=== PATIENT | male | born 1990 | race Caucasian/White ===

== ENCOUNTER 2016-12-31 21:52 | Emergency (ER) | payer OTHER, SELFPAY ==
[2016-12-31 22:09] VITALS: O2SAT 98
--- NOTE | 2016-12-31 22:35 | ERPHSYRPT ---
- History of Present Illness Time Seen by Provider: 12/31/16 22:30 Source: patient, family Exam Limitations: no limitations Patient Subjective Stated Complaint: PT COMPLAINS OF PRODUCTIVE COUGH, EAR PAIN , AND HOARSENESS FOR APPROXIMATELY ONE WEEK. PT ALSO COMPLAINS OF ROBIN, NAUSEA AND DIZZINESS. PT REPORTS HISTORY OF SINUS PROBLEMS. Triage Nursing Assessment: PT IS AOX3, AMBULATORY TO COT WITH NO DIFFICULTIES, SKIN IS PWD, RESPS ARE EASY AND NONLABORED. PT IS AFEBRILE. LUNG SOUNDS ARE CLEAR THROUGHOUT ALL FRANCIS. Physician History: The patient is a 26-year-old male with his complaining of a cough for 2 weeks. He also has hoarseness and a frontal headache and nausea at times. For the past 2 days his right ear has hurt. He has a past medical history of sinus infections. He denies fever. Timing/Duration: week(s) (2) Cough Quality/Degree: productive cough Possible Cause: occasional episodes Modifying Factors: Improves With: coughing Associated Symptoms: cough, earache, sore throat Allergies/Adverse Reactions: No Known Drug Allergies Allergy (Unverified 01/21/14 16:02) Home Medications: No Home Meds 1 ea UD 01/21/14 [History] Hx Tetanus, Diphtheria Vaccination/Date Given: Yes Hx Influenza Vaccination/Date Given: No Hx Pneumococcal Vaccination/Date Given: No Immunizations Up to Date: Yes - Review of Systems Constitutional: No Fever, No Chills Eyes: No Symptoms Ears, Nose, & Throat: Ear Pain, Hoarse Respiratory: Cough Cardiac: No Chest Pain, No Edema, No Syncope Abdominal/Gastrointestinal: Nausea Genitourinary Symptoms: No Dysuria Musculoskeletal: No Back Pain, No Neck Pain Skin: No Rash Neurological: No Dizziness, No Focal Weakness, No Sensory Changes Psychological: No Symptoms Endocrine: No Symptoms Hematologic/Lymphatic: No Symptoms Immunological/Allergic: No Symptoms All Other Systems: Reviewed and Negative - Past Medical History Pertinent Past Medical History: Yes Neurological History: No Pertinent History ENT History: No Pertinent History Respiratory History: No Pertinent History Endocrine Medical History: No Pertinent History, Hypoglycemia Musculoskeletal History: Other History: No Pertinent History Psycho-Social History: No Pertinent History Male Reproductive Disorders: No Pertinent History 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, SINUS - Past Surgical History Past Surgical History: Yes Gastrointestinal: Other Other Surgical History: PYLORIC STENOSIS SURG AN INFANT - Social History Smoking Status: Never smoker How long have you smoked: 13 Exposure to second hand smoke: Yes Drug Use: none Patient Lives Alone: No - Nursing Vital Signs Nursing Vital Signs: Initial Vital Signs Temperature 99.4 F Temperature Source Oral Pulse Rate 100 Respiratory Rate 20 Blood Pressure [Left Arm] 142/92 Pain Intensity 3 - Physical Exam General Appearance: no apparent distress Eye Exam: PERRL/EOMI, eyes nml inspection Ears, Nose, Throat Exam: TM abnormal (L) Neck Exam: normal inspection, non-tender, supple, full range of motion Respiratory Exam: normal breath sounds, lungs clear, No respiratory distress Cardiovascular Exam: regular rate/rhythm, normal heart sounds Gastrointestinal/Abdomen Exam: soft, No tenderness Rectal Exam: not done Back Exam: normal inspection, No CVA tenderness, No vertebral tenderness Extremity Exam: normal inspection, normal range of motion Neurologic Exam: alert, oriented x 3, cooperative, normal mood/affect, sensation nml, No motor deficits Skin Exam: normal color, warm, dry, No rash Lymphatic Exam: No adenopathy SpO2 Interpretation: normal SpO2: 98 Oxygen Delivery: Room Air - Progress Progress: unchanged Air Movement: fair Blood Culture(s) Obtained: No Antibiotics given: No Counseled pt/family regarding: diagnosis - Departure Time of Disposition: 22:34 Departure Disposition: Home Clinical Impression: Otitis media, Bronchitis, Sinusitis Condition: Stable Critical Care Time: No Prescriptions: Ondansetron [Zofran Odt] 4 mg PO Q6HPRN PRN #10 tab.rapdis PRN Reason: Nausea/Vomiting Amoxicillin/Potassium Clav [Augmentin 875-125 Tablet] 875 mg PO BID #20 tablet
[2016-12-31] MEDS ORDERED: Augmentin 875-125 Tablet PO ONE (22:37)
[2016-12-31] MEDS ORDERED: Augmentin 875-125 Tablet ONE (22:39)
[2016-12-31 22:59] VITALS: BP 132/88; PULSE 89
== END 2016-12-31 22:58 | disposition home or self-care (01) ==
LOC: ED 21:52
DX: H66.90 Otitis media, unspecified, unspecified ear (principal); J40 Bronchitis, not specified as acute or chronic; J32.9 Chronic sinusitis, unspecified; R05 Cough
CPT/HCPCS: 99283; A9270-GY

== ENCOUNTER 2017-08-20 17:23 | Emergency (ER) | payer OTHER ==
[2017-08-20 17:36] VITALS: BP 147/86; PULSE 73; O2SAT 96
[2017-08-20] MEDS ORDERED: TORAdol 30 mg Injection IV ONE (17:52)
[2017-08-20] MEDS ORDERED: DECADRON 10MG INJ. IV ONE (17:52)
--- NOTE | 2017-08-20 17:52 | ERPHSYRPT ---
- History of Present Illness Time Seen by Provider: 08/20/17 17:44 Source: patient Exam Limitations: no limitations Patient Subjective Stated Complaint: pt states he has chronic back problems. states pain became worse 3 days ago. seen chiropractor 2 days ago. pt denies any recent injury to back. pt c/o pain to lower back. Triage Nursing Assessment: ptpink, warm, dry. pt ambulated into ER without difficulty. no deformity noted. pt urinating wnl. Physician History: The patient is a 26-year-old male with his come complaining of increasing low back pain for 2-3 days. He states he has chronic back pain and this is a flareup. He took one of his 's [place] was about one week ago without relief. He requests Toradol and a steroid by IV. He was at his chiropractor 2 days ago with minimal relief. He did not hurt his back by lifting. He has no trouble with urination or defecation. He denies any numbness or tingling. His past medical history is significant for chronic back pain. Timing/Duration: day(s) (3) Method of Injury: unknown Quality: sharp, aching Back Pain Location: lumbar spine, paraspinous muscles Severity of Pain-Max: severe Severity of Pain-Current: severe Modifying Factors: Improves With: pain medication Associated Symptoms: denies symptoms, No urinary incontinence, No loss of bowel control, No problems urinating, No weakness, No sensory/motor loss, No tingling in legs/feet Previous symptoms: same symptoms as today Allergies/Adverse Reactions: No Known Drug Allergies Allergy (Unverified 08/20/17 17:36) Home Medications: Cetirizine HCl [Zyrtec] 10 mg PO DAILY 08/20/17 [History] Hx Tetanus, Diphtheria Vaccination/Date Given: Yes (up to date) Hx Influenza Vaccination/Date Given: No Hx Pneumococcal Vaccination/Date Given: No Immunizations Up to Date: Yes - Review of Systems Constitutional: No Fever, No Chills Eyes: No Symptoms Ears, Nose, & Throat: No Symptoms Respiratory: No Cough, No Dyspnea Cardiac: No Chest Pain, No Edema, No Syncope Abdominal/Gastrointestinal: No Abdominal Pain, No Nausea, No Vomiting, No Diarrhea Genitourinary Symptoms: No Dysuria Musculoskeletal: Back Pain Skin: No Rash Neurological: No Dizziness, No Focal Weakness, No Sensory Changes Psychological: No Symptoms Endocrine: No Symptoms Hematologic/Lymphatic: No Symptoms Immunological/Allergic: No Symptoms All Other Systems: Reviewed and Negative - Past Medical History Pertinent Past Medical History: Yes Neurological History: No Pertinent History ENT History: No Pertinent History Cardiac History: Hypertension Respiratory History: No Pertinent History Endocrine Medical History: Hypoglycemia Musculoskeletal History: No Pertinent History History: No Pertinent History Psycho-Social History: No Pertinent History Male Reproductive Disorders: No Pertinent History Other Medical History: chronic back pain - Past Surgical History Past Surgical History: Yes Gastrointestinal: Other Other Surgical History: pyloric stenosis - Social History Smoking Status: Never smoker How long have you smoked: 13 Exposure to second hand smoke: No Drug Use: none Patient Lives Alone: No - Nursing Vital Signs Nursing Vital Signs: Initial Vital Signs Temperature 97.8 F 08/20/17 17:32 Pulse Rate 73 08/20/17 17:32 Respiratory Rate 18 08/20/17 17:32 Blood Pressure 147/86 08/20/17 17:32 O2 Sat by Pulse Oximetry 96 08/20/17 17:32 Pain Scale Pain Intensity [Lower Back] 6 Pain Intensity 6 - Physical Exam General Appearance: mild distress Eye Exam: PERRL/EOMI, eyes nml inspection Ears, Nose, Throat Exam: normal ENT inspection Neck Exam: normal inspection, non-tender, supple, full range of motion, No meningismus, No midline tenderness Respiratory Exam: normal breath sounds, lungs clear, No respiratory distress Cardiovascular Exam: regular rate/rhythm, normal heart sounds Gastrointestinal Exam: soft, No tenderness, No mass Rectal Exam: not done Back Exam: decreased range of motion, muscle spasm (left lumbar paraspinous ), No vertebral tenderness Extremity Exam: normal inspection, normal range of motion, No calf tenderness, No pedal edema Neurologic Exam: alert, oriented x 3, cooperative, ict programmer II-XII nml as tested, normal mood/affect, nml station & gait, sensation nml, No motor deficits Skin Exam: normal color, warm, dry, No rash SpO2 Interpretation: normal SpO2: 96 Oxygen Delivery: Room Air - Departure Time of Disposition: 17:58 Departure Disposition: Home Clinical Impression: Low back pain Condition: Stable Critical Care Time: No Referrals: NING ARAUJO [Primary Care Provider] - Additional Instructions: You have low back pain with back spasms. You were given Toradol 30 mg and Decadron 10 mg by IV injection in the ER. Take naproxen 500 mg twice a day as needed and Flexeril 5 mg every 8 hours as needed. Apply ice to the low back as needed. Follow-up in one to 2 days. Prescriptions: Cyclobenzaprine HCl [Flexeril] 5 mg PO Q8H PRN PRN #10 tablet PRN Reason: Pain Naproxen 500 mg PO BID PRN #30 tablet.
[2017-08-20] MEDS ORDERED: TORAdol 30 mg Injection ONE (17:57)
[2017-08-20] MEDS ORDERED: DECADRON 10MG INJ. ONE (17:57)
== END 2017-08-20 18:39 | disposition home or self-care (01) ==
LOC: ED 17:23
DX: M54.5 Low back pain (principal); R25.2 Cramp and spasm; M62.830 Muscle spasm of back
CPT/HCPCS: 96374; 96375; 99283; J1100; J1885

== ENCOUNTER 2017-12-17 10:20 | Emergency (ER) | payer OTHER ==
[2017-12-17] MEDS ORDERED: MOTRIN 600 MG PO ONE (10:32)
[2017-12-17] MEDS ORDERED: MOTRIN 600 MG ONE (10:40)
[2017-12-17 11:17] VITALS: BP 135/81; PULSE 72; O2SAT 94
--- NOTE | 2017-12-17 11:19 | XRAY ---
Indication: Pain following lifting injury. Comparison: None 3 views of the right shoulder demonstrates minimal AC degenerative arthropathy. No other bony, articular, or soft tissue abnormalities.
--- NOTE | 2017-12-17 11:37 | ERPHSYRPT ---
- History of Present Illness Time Seen by Provider: 12/17/17 10:32 Source: patient Exam Limitations: no limitations Patient Subjective Stated Complaint: right shoulder pain Triage Nursing Assessment: pt to er c/o right shoulder pain, reinjury, lifting batteries to a shelf when he felt it pop and "tear", pt has limited ROM, pain increases wtih movement Physician History: patient lifting at work today; felt pain and tear in right shoulder after lifting a battery; no other injuries or complaints; right handed; prior strains Occurred: just prior to arrival Method of Injury: other (lifting a bawttery) Quality: aching Severity of Pain-Max: severe Severity of Pain-Current: mild Extremities Pain Location: shoulder: right Modifying Factors: Improves With: immobilization (helps), movement (aggravates) Associated Symptoms: none Allergies/Adverse Reactions: No Known Drug Allergies Allergy (Unverified 08/20/17 17:36) Home Medications: Cetirizine HCl [Zyrtec] 10 mg PO DAILY 08/20/17 [History] Hx Tetanus, Diphtheria Vaccination/Date Given: No Hx Influenza Vaccination/Date Given: No Hx Pneumococcal Vaccination/Date Given: No Immunizations Up to Date: No - Review of Systems Constitutional: No Symptoms Eyes: No Symptoms Ears, Nose, & Throat: No Symptoms Respiratory: No Cough, No Cyanosis, No Dyspnea, No Wheezing Cardiac: No Chest Pain, No Edema, No Syncope Abdominal/Gastrointestinal: No Abdominal Pain, No Nausea, No Vomiting, No Diarrhea Genitourinary Symptoms: No Symptoms Musculoskeletal: Injury (right sholdeer), Joint Pain (right shoulder) Skin: No Symptoms Neurological: No Symptoms Psychological: No Symptoms - Past Medical History Pertinent Past Medical History: No Neurological History: No Pertinent History ENT History: No Pertinent History Cardiac History: Hypertension Respiratory History: No Pertinent History Endocrine Medical History: Hypoglycemia Musculoskeletal History: No Pertinent History History: No Pertinent History Psycho-Social History: No Pertinent History Male Reproductive Disorders: No Pertinent History Other Medical History: chronic back pain - Past Surgical History Past Surgical History: No Gastrointestinal: Other Other Surgical History: pyloric stenosis - Social History Smoking Status: Never smoker How long have you smoked: 13 Exposure to second hand smoke: No Alcohol Use: Socially Drug Use: none Patient Lives Alone: No Significant Family History: no pertinent family hx - Nursing Vital Signs Nursing Vital Signs: Initial Vital Signs Temperature 98.0 F 12/17/17 10:31 Pulse Rate 82 12/17/17 10:31 Respiratory Rate 20 12/17/17 10:31 Blood Pressure 145/91 12/17/17 10:31 O2 Sat by Pulse Oximetry 98 12/17/17 10:31 Pain Scale Pain Intensity 6 - Physical Exam General Appearance: mild distress (pain right shulder), alert, obese Eyes, Ears, Nose, Throat Exam: normal ENT inspection, TMs normal, pharynx normal Neck Exam: normal inspection, non-tender, supple, full range of motion, No JVD Cardiovascular/Respiratory Exam: chest non-tender, normal breath sounds, regular rate/rhythm, heart sounds normal, no ecchymosis, no JVD, no M/R/G, no respiratory distress Abdominal Exam: non-tender, soft, no organomegaly Back Exam: normal inspection, normal range of motion, No CVA tenderness, No vertebral tenderness Shoulder Exam: normal inspection, limited ROM, pain, soft tissue tenderness, No non-tender, No normal ROM Elbow/Forearm Exam: normal inspection, non-tender, no evidence of injury, normal ROM Wrist Exam: normal inspection, non-tender, no evidence of injury, normal ROM Hand Exam: normal inspection, non-tender, no evidence of injury, normal ROM Neuro/Tendon Exam: normal sensation, normal motor functions, normal tendon functions, responds to pain Mental Status Exam: alert, oriented x 3, cooperative Skin Exam: normal color, warm, dry SpO2 Interpretation: normal SpO2: 94 Oxygen Delivery: Room Air Procedures - Splinting Location of Splint: Right, Upper Arm Type of Splint: Other (sling) Splint Applied By: Other Pre-Proc Neuro Vasc Exam: normal Post-Proc Neuro Vasc Exam: neurovascular intact - Course Nursing assessment & vital signs reviewed: Yes Ordered Tests: Active Orders 24 hr Category Date Time Status Cold Application STAT Care 12/17/17 10:32 Active Re-Check Vital Signs STAT Care 12/17/17 10:32 Active Sling Application STAT Care 12/17/17 10:32 Active SHOULDER Stat Exams 12/17/17 11:00 Completed Medication Summary Discontinued Medications Generic Name Dose Route Start Last Admin Trade Name Freq PRN Reason Stop Dose Admin Ibuprofen 600 mg 12/17/17 10:32 12/17/17 10:41 Motrin 600 Mg PO 12/17/17 10:33 600 mg STAT ONE Administration Ibuprofen Confirm 12/17/17 10:40 Motrin 600 Mg Administered 12/17/17 10:41 Dose 600 mg .ROUTE .STK-MED ONE - Progress Progress: improved, re-examined Progress Note: 12/17/17 11:36 xr neg; sling applied; no NV compromise after; resutls and instrcutions given; meds helped Counseled pt/family regarding: diagnosis, need for follow-up, rad results - Departure Time of Disposition: 11:37 Departure Disposition: Home Clinical Impression: Right shoulder strain Condition: Stable Critical Care Time: No Referrals: NING ARAUJO [Primary Care Provider] - Instructions: Shoulder Sprain (DC) Additional Instructions: Acute Sprain Instructions upper extremity; R.I.C.E.; wear splint/sling as directed; observe for neuro-vascular compromise ( change in color; increased pain; cold to touch); FU LMD/ specialist as directed; call for appointment as directed; Return if problems; Motrin OTC Take meds as prescribed. Follow-up with family doctor as directed. Call for appointment. Return if any problems. If you smoke please stop. Call or follow up with your family doctor for assistance if you need it to stop. Please wear your seatbelt when driving. Have a nice day. Thank you for allowing us to participate in your care today. :o) Dr Caden Barajas
== END 2017-12-17 11:43 | disposition home or self-care (01) ==
LOC: ED 10:20
DX: S46.911A Strain of unspecified muscle, fascia and tendon at shoulder and upper arm level, right arm, initial encounter (principal); X50.0XXA Overexertion from strenuous movement or load, initial encounter; Y93.89 Activity, other specified; Y92.29 Other specified public building as the place of occurrence of the external cause; Y99.0 Civilian activity done for income or pay; I10 Essential (primary) hypertension
CPT/HCPCS: 73030; 99283; A9270-GY

== ENCOUNTER 2018-12-21 02:12 | Emergency (ER) | payer OTHER ==
[2018-12-21] MEDS ORDERED: TORAdol 30 mg Injection IM ONE (03:10)
--- NOTE | 2018-12-21 03:15 | ERPHSYRPT ---
- History of Present Illness Source: patient Exam Limitations: no limitations Patient Subjective Stated Complaint: pt states he has been having lt foot pain since approx 1300 and has been increasing thru the day. sttes pain is on the outside of his foot and radiating up to calf. states pain is worse when sitting down after walking Triage Nursing Assessment: pt alert and oriented, answers questions approp. pt in per wheelchair, transfers to stretcher per self with limping gait noted. cap refill to lt lower ext and pedal pulse wnl. Physician History: Pt is a 27 y/o male that presented to the ER with severe left foot pain. Pt states, has pain in the lateral part of the foot and the arch. It is worse, when he is begining to ambulate after rest. Pain is severe on palpation. No injury caused the pain. Occurred: days ago Quality: sharpness, stabbing, other (after rest and begining ambulation) Severity of Pain-Max: severe Severity of Pain-Current: severe Lower Extremities Pain: foot: left (plantar pain with ambulation) Modifying Factors: Improves With: cold therapy, pain medication Associated Symptoms: none Allergies/Adverse Reactions: No Known Drug Allergies Allergy (Verified 01/20/18 12:25) Home Medications: Cetirizine HCl [Zyrtec] 10 mg PO DAILY 08/20/17 [History] Hx Tetanus, Diphtheria Vaccination/Date Given: Yes Hx Influenza Vaccination/Date Given: No Hx Pneumococcal Vaccination/Date Given: No Immunizations Up to Date: Yes - Review of Systems Constitutional: No Fever, No Chills Respiratory: No Cough, No Dyspnea Cardiac: No Chest Pain, No Edema, No Syncope Abdominal/Gastrointestinal: No Abdominal Pain, No Nausea, No Vomiting, No Diarrhea Genitourinary Symptoms: No Dysuria Musculoskeletal: Other (Pain in the plantar aspect of the L foot.) Neurological: No Dizziness, No Focal Weakness, No Sensory Changes - Past Medical History Pertinent Past Medical History: No Neurological History: No Pertinent History ENT History: No Pertinent History Cardiac History: Hypertension Respiratory History: No Pertinent History Endocrine Medical History: Hypoglycemia Musculoskeletal History: No Pertinent History GI Medical History: GERD History: No Pertinent History Psycho-Social History: No Pertinent History Male Reproductive Disorders: No Pertinent History Other Medical History: chronic back pain, pt states he does not have high blood pressure all the time. - Past Surgical History Past Surgical History: Yes Neuro Surgical History: No Pertinent History Cardiac: No Pertinent History Respiratory: No Pertinent History Gastrointestinal: Other Genitourinary: No Pertinent History Musculoskeletal: No Pertinent History Male Surgical History: No Pertinent History Other Surgical History: pyloric stenosis - Social History Smoking Status: Former smoker How long have you smoked: 13 Exposure to second hand smoke: No Alcohol Use: Socially Drug Use: none Patient Lives Alone: No Significant Family History: no pertinent family hx - Nursing Vital Signs Nursing Vital Signs: Initial Vital Signs Temperature 97.3 F 12/21/18 02:22 Pulse Rate 98 H 12/21/18 02:22 Respiratory Rate 20 12/21/18 02:22 Blood Pressure 151/106 12/21/18 02:22 O2 Sat by Pulse Oximetry 98 12/21/18 02:22 Pain Scale Pain Intensity [Left Foot] 10 Pain Intensity 10 - Physical Exam General Appearance: alert Cardiovascular/Respiratory Exam: chest non-tender, normal breath sounds, regular rate/rhythm, no respiratory distress Gastrointestinal/Abdominal Exam: non-tender, guarding Legs Exam: left leg: non-tender (No calf tenderness ) Foot Exam: left foot: pain (in the plantar aspect of the L foot), soft tissue tenderness Neuro/Tendon Exam: normal sensation, normal motor functions Skin Exam: normal color, warm, dry SpO2: 98 - Course Nursing assessment & vital signs reviewed: Yes - Radiology Exams Left Foot X-ray Interpretation: Interpreted by me (No fracture seen) Ordered Tests: Active Orders 24 hr Category Date Time Status FOOT (MINIMUM 3 VIEWS) Stat Exams 12/21/18 02:57 Taken - Progress Progress: improved Progress Note: 12/21/18 03:17 Pt had XR that showed no fracture. On palpation there is tenderness to palpation of the arch and lateral aspect of the foot. I explained to the pt that he has plantar fasciitis and needs to stretch his foot preior to ambulation and in the AM and post rest. Toradol IM was given for pain. Pt should f/u with podiatry. 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 Stretch foot prior to ambulation. F/u with Podiatry if no improvement.
[2018-12-21] MEDS ORDERED: TORAdol 30 mg Injection ONE (03:17)
[2018-12-21 03:55] VITALS: BP 136/83; PULSE 83; O2SAT 97
--- NOTE | 2018-12-21 09:17 | XRAY ---
Indication: Pain. No known injury. Comparison: None 3 nonweightbearing views of the left foot demonstrates tiny posterior heel spur. No other bony, articular, or soft tissue abnormalities.
== END 2018-12-21 03:50 | disposition home or self-care (01) ==
LOC: ED 02:12
DX: M72.2 Plantar fascial fibromatosis (principal); M79.672 Pain in left foot
CPT/HCPCS: 73630; 96372; 99284; J1885

== ENCOUNTER 2020-04-12 00:55 | Emergency (ER) | payer OTHER ==
[2020-04-12] MEDS ORDERED: BABY ASPIRIN 81 MG CHEW PO ONE (01:24)
--- NOTE | 2020-04-12 01:30 | ERPHSYRPT ---
- History of Present Illness Time Seen by Provider: 04/12/20 01:16 Source: patient Exam Limitations: no limitations Patient Subjective Stated Complaint: pt states he has beenhaving occasional dizzy spells and feels like his heart is racng. states tonight he had a dizzy spell and felt like his heart was racing and has cont to feel bad after. states he feels drained after. Triage Nursing Assessment: pt alert and oriented, answers questions approp. pt ambulatory with steady gait noted. respirations nonlabored with lungs cta. heart rate 95 on monitor, sinus rhythm. no jvd noted. no peripheral edema noted. skin warm and dry Physician History: 29 years old male presented in the ER with chief complaint of palpitation and dizzy spells going off and on for almost 1 month. Patient report he feels as if his heart is racing really fast, start feeling lightheaded as if he is going to pass out/pounding of heart. The last for almost 1 minute and starts to improve on its own. Afterwards he feels really weak tired, drained with no energy to do his routine activities. Lately is getting worse and today prior to arrival he had a spell which continued for more than 1 minute with weakness afterwards. He also reports having some chest tightness/pain on left side which comes along with that and improves quickly. Patient also endorses shortness of breath during the spell. Denies any leg swelling, long travel or taking any hormone pills. Denies any history of blood clots. No history history of coronary artery disease or any chest pain work-up in the past. Does have positive family history. Timing/Duration: week(s), intermittent, gradual onset, worse Activities at Onset: none Quality: sharpness Location: central Chest Pain Radiation: no radiation Severity of Pain-Max: moderate Severity of Pain-Current: none Modifying Factors: Improves With: rest Nitro Today/Relief: no nitro taken today Aspirin Treatment Today: no aspirin today Associated Symptoms: shortness of breath, chest pain Prior Chest Pain/Cardiac Workup: no prior cardiac workup Allergies/Adverse Reactions: No Known Drug Allergies Allergy (Verified 04/12/20 01:18) Home Medications: Cetirizine HCl [Zyrtec] 10 mg PO DAILY 08/20/17 [History] Fluticasone Propionate [Flonase NASAL] 2 gm NS DAILY 04/12/20 [History] Olopatadine HCl Ophth [Patanol 1% OPHTHALMIC] 2 drops IO BID 04/12/20 [History] Omeprazole 20 mg PO HS 04/12/20 [History] Hx Tetanus, Diphtheria Vaccination/Date Given: Yes Hx Influenza Vaccination/Date Given: No Hx Pneumococcal Vaccination/Date Given: No Immunizations Up to Date: Yes Travel Risk - International Travel Have you traveled outside of the country in past 3 weeks: No - Coronavirus Screening Are you exhibiting any of the following symptoms?: No Close contact with a COVID-19 positive Pt in past 14-21 Days: No - Review of Systems Constitutional: No Symptoms Eyes: No Symptoms Ears, Nose, & Throat: No Symptoms Respiratory: Dyspnea Cardiac: Chest Pain, Palpitations Abdominal/Gastrointestinal: No Symptoms Genitourinary Symptoms: No Symptoms Musculoskeletal: No Symptoms Skin: No Symptoms Neurological: No Symptoms Psychological: No Symptoms Endocrine: No Symptoms Hematologic/Lymphatic: No Symptoms Immunological/Allergic: No Symptoms - Past Medical History Pertinent Past Medical History: Yes Neurological History: No Pertinent History ENT History: No Pertinent History Cardiac History: High Cholesterol, Hypertension Respiratory History: No Pertinent History Endocrine Medical History: Hypoglycemia Musculoskeletal History: No Pertinent History GI Medical History: GERD History: No Pertinent History Psycho-Social History: No Pertinent History Male Reproductive Disorders: No Pertinent History Other Medical History: chronic back pain, pt states he does not have high blood pressure all the time. - Past Surgical History Past Surgical History: Yes Neuro Surgical History: No Pertinent History Cardiac: No Pertinent History Respiratory: No Pertinent History Gastrointestinal: Other Genitourinary: No Pertinent History Musculoskeletal: No Pertinent History Male Surgical History: No Pertinent History Other Surgical History: pyloric stenosis - Social History Smoking Status: Current every day smoker How long have you smoked: 15yrs Exposure to second hand smoke: No Alcohol Use: Socially Drug Use: none Patient Lives Alone: No Significant Family History: no pertinent family hx - Nursing Vital Signs Nursing Vital Signs: Initial Vital Signs Temperature 98.1 F 04/12/20 01:04 Pulse Rate 88 04/12/20 01:04 Respiratory Rate 18 04/12/20 01:04 Blood Pressure 145/88 04/12/20 01:04 O2 Sat by Pulse Oximetry 98 04/12/20 01:04 Pain Scale Pain Intensity 2 - Physical Exam General Appearance: no apparent distress Eye Exam: PERRL/EOMI, eyes nml inspection Ears, Nose, Throat Exam: normal ENT inspection, TMs normal, pharynx normal Neck Exam: normal inspection, non-tender, supple, full range of motion Respiratory Exam: normal breath sounds, lungs clear Cardiovascular Exam: regular rate/rhythm, normal heart sounds Gastrointestinal/Abdomen Exam: soft, No tenderness Back Exam: normal inspection, No CVA tenderness Neurologic Exam: alert, oriented x 3, cooperative, 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 as tested, normal mood/affect, nml cerebellar function, nml station & gait, sensation nml Skin Exam: normal color SpO2 Interpretation: normal SpO2: 98 O2 Delivery: Room Air - Course Nursing assessment & vital signs reviewed: Yes EKG Interpreted by Me: RATE ([id number]), NORMAL AXIS, NORMAL INTERVALS, NORMAL QRS Ordered Tests: Active Orders 24 hr Category Date Time Status 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 Care 04/12/20 01:25 Active EKG-ER Only STAT Care 04/12/20 01:24 Active IV Insertion STAT Care 04/12/20 01:24 Active CHEST 1 VIEW (PORTABLE) Stat Exams 04/12/20 01:39 Taken CBC W DIFF Stat Lab 04/12/20 01:34 Completed CMP Stat Lab 04/12/20 01:34 Completed D-DIMER QUANTITATIVE Stat Lab 04/12/20 01:24 Completed NT PRO BNP Stat Lab 04/12/20 01:34 Completed TROPONIN Q3H Lab 04/12/20 01:34 Completed TROPONIN Q3H Lab 04/12/20 04:30 Ordered TROPONIN Q3H Lab 04/12/20 07:30 Ordered TROPONIN Q3H Lab 04/12/20 10:30 Ordered TROPONIN Q3H Lab 04/12/20 13:30 Ordered TSH [TSH, 3RD Generation] Stat Lab 04/12/20 01:34 Completed Medication Summary Discontinued Medications Generic Name Dose Route Start Last Admin Trade Name Freq PRN Reason Stop Dose Admin Aspirin 324 mg 04/12/20 01:24 04/12/20 01:33 Baby Aspirin 81 Mg Chew PO 04/12/20 01:25 324 mg STAT ONE Administration Lab/Rad Data: Laboratory Result Diagrams 04/12/20 01:34 04/12/20 01:34 Laboratory Results 04/12/20 04/12/20 04/12/20 Range/Units 01:34 01:34 01:34 WBC (4.0-10.5) K/mm3 RBC (4.1-5.6) M/mm3 Hgb (12.5-18.0) gm/dl Hct (42-50) % MCV (78-100) fl MCH (26-32) pg MCHC (32-36) g/dl RDW (11.5-14.0) % Plt Count (150-450) K/mm3 MPV (7.5-11.0) fl Gran % (36.0-66.0) % Eos # (Auto) (0-0.5) Absolute Lymphs (auto) (1.0-4.6) Absolute Monos (auto) (0.0-1.3) Lymphocytes % (24.0-44.0) % Monocytes % (0.0-12.0) % Eosinophils % (0.00-5.0) % Basophils % (0.0-0.4) % Absolute Granulocytes (1.4-6.9) Basophils # (0-0.4) D-Dimer (215-500) ng/mL Sodium 140 (137-145) mmol/L Potassium 3.7 (3.5-5.1) mmol/L Chloride 107 (98-107) mmol/L Carbon Dioxide 26 (22-30) mmol/L Anion Gap 10.5 (5-15) MEQ/L BUN 11 (9-20) mg/dL Creatinine 0.94 (0.66-1.25) mg/dL Estimated GFR > 60.0 ML/MIN Glucose 127 H (74-106) mg/dL Calcium 9.1 (8.4-10.2) mg/dL Total Bilirubin 0.50 (0.2-1.3) mg/dL AST 20 (17-59) U/L ALT 23 (0-50) U/L Alkaline Phosphatase 69 (38-126) U/L Troponin I < 0.012 (0.000-0.034) ng/mL NT-Pro-B Natriuret Pep 36.5 (0-450) pg/mL Serum Total Protein 7.6 (6.3-8.2) g/dL Albumin 4.3 (3.5-5.0) g/dL TSH 3rd Generation 8.300 H (0.47-4.68) mIU/L 07/01/20 07/01/20 Range/Units 01:34 01:24 WBC 7.8 (4.0-10.5) K/mm3 RBC 4.93 (4.1-5.6) M/mm3 Hgb 14.8 (12.5-18.0) gm/dl Hct 42.7 (42-50) % MCV 86.6 (78-100) fl MCH 30.0 (26-32) pg MCHC 34.7 (32-36) g/dl RDW 13.3 (11.5-14.0) % Plt Count 204 (150-450) K/mm3 MPV 11.7 H (7.5-11.0) fl Gran % 59.7 (36.0-66.0) % Eos # (Auto) 0.27 (0-0.5) Absolute Lymphs (auto) 2.25 (1.0-4.6) Absolute Monos (auto) 0.55 (0.0-1.3) Lymphocytes % 28.9 (24.0-44.0) % Monocytes % 7.1 (0.0-12.0) % Eosinophils % 3.5 (0.00-5.0) % Basophils % 0.8 (0.0-0.4) % Absolute Granulocytes 4.65 (1.4-6.9) Basophils # 0.06 (0-0.4) D-Dimer 220 (215-500) ng/mL Sodium (137-145) mmol/L Potassium (3.5-5.1) mmol/L Chloride (98-107) mmol/L Carbon Dioxide (22-30) mmol/L Anion Gap (5-15) MEQ/L BUN (9-20) mg/dL Creatinine (0.66-1.25) mg/dL Estimated GFR ML/MIN Glucose (74-106) mg/dL Calcium (8.4-10.2) mg/dL Total Bilirubin (0.2-1.3) mg/dL AST (17-59) U/L ALT (0-50) U/L Alkaline Phosphatase (38-126) U/L Troponin I (0.000-0.034) ng/mL NT-Pro-B Natriuret Pep (0-450) pg/mL Serum Total Protein (6.3-8.2) g/dL Albumin (3.5-5.0) g/dL TSH 3rd Generation (0.47-4.68) mIU/L - Progress Progress: improved, re-examined Air Movement: good Progress Note: 04/12/20 03:06 29 years old is evaluated for intermittent palpitations and lightheadedness. EKG showed normal sinus rhythm with no ectopy/arrhythmia. He does not have any episode while in the ER. Negative initial troponin and d-dimer. Chest x-ray did not show any pneumonic infiltrates. Grossly unremarkable work-up except for elevated TSH of 8. Recommended observation/second set of troponin but patient wants to go home and he does have appointment with primary care in less than 24- hour.. He is advised to follow-up with primary care and cardiology for reevaluation as I believe patient is having intermittent arrhythmia causing his lightheadedness and dizziness and needs Holter/ZIO patch monitoring. Discussed signs symptoms of worsening needing return to ER which he seems understanding. Stable for discharge. Blood Culture(s) Obtained: No Antibiotics given: No Counseled pt/family regarding: lab results, diagnosis, need for follow-up, rad results, smoking cessation - Departure Departure Disposition: Home Clinical Impression: Intermittent palpitations, Intermittent lightheadedness Condition: Stable Critical Care Time: No Referrals: NING ARAUJO [Primary Care Provider] - (as scheduled ) MILDRED LUA [ACTIVE STAFF] - (call for appointment ) Instructions: Tachycardia (DC) Additional Instructions: Drink plenty of fluids. Do not smoke. Follow-up with primary care/cardiology for reevaluation. Return to ER for any worsening.
[2020-04-12 01:38] LABS: Absolute Neutrophil Ct (ANC) 4.65 (1.4-6.9); BASOPHIL % 0.8 % (0.0-0.4); Basophil (Absolute #) 0.06 (0-0.4); Eosinophil % 3.5 % (0.00-5.0); Eosinophil (Absolute #) 0.27 (0-0.5); Hematocrit 42.7 % (42-50); Hemoglobin 14.8 gm/dl (12.5-18.0); Lymphocyte (Absolute #) 2.25 (1.0-4.6); Lymphocytes % 28.9 % (24.0-44.0); Mean Cell Volume 86.6 fl (78-100); Mean Corpuscular Hgb Concent. 34.7 g/dl (32-36); Mean Platelet Volume 11.7 fl (7.5-11.0); Monocyte (Absolute #) 0.55 (0.0-1.3); Monocytes % 7.1 % (0.0-12.0); Neutrophil % 59.7 % (36.0-66.0); Platelet Count 204 K/mm3 (150-450); Red Blood Count 4.93 M/mm3 (4.1-5.6); Red Cell Distribution Width 13.3 % (11.5-14.0); White Blood Count 7.8 K/mm3 (4.0-10.5)
[2020-04-12 01:59] LABS: ALBUMIN 4.3 g/dL (3.5-5.0); ALKALINE PHOSPHATASE 69 U/L (38-126); ANION GAP 10.5 MEQ/L (5-15); BLOOD UREA NITROGEN 11 mg/dL (9-20); CHLORIDE 107 mmol/L (98-107); Calcium 9.1 mg/dL (8.4-10.2); Carbon Dioxide 26 mmol/L (22-30); Creatinine 1 0.94 mg/dL (0.66-1.25); Glucose 127 mg/dL (74-106); NT PRO BNP 36.5 pg/mL (0-450); Potassium 3.7 mmol/L (3.5-5.1); SGOT/AST 20 U/L (17-59); SGPT/ALT 23 U/L (0-50); SODIUM 140 mmol/L (137-145); Total Protein 7.6 g/dL (6.3-8.2)
[2020-04-12 03:13] VITALS: BP 134/87; PULSE 92; O2SAT 100
--- NOTE | 2020-04-12 08:39 | XRAY ---
Indication: Palpitations and dizziness. Comparison: January 21, 2014. Portable apical lordotic chest again demonstrates normal heart, lungs, and bony thorax.
== END 2020-04-12 03:13 | disposition home or self-care (01) ==
LOC: ED 00:55
DX: R00.2 Palpitations (principal); R42 Dizziness and giddiness
CPT/HCPCS: 36000; 36415; 71045; 80053; 83880; 84443; 84484; 85025; 85379; 93005; 93041; 99284; A9270-GY

== ENCOUNTER 2021-09-13 18:14 | Emergency (ER) | payer OTHER ==
[2021-09-13] MEDS ORDERED: Sodium Chloride 0.9% 1000 ML 1,000 ML IV STA (18:29)
[2021-09-13] MEDS ORDERED: TORAdol 30 mg Injection IV ONE (18:31)
[2021-09-13] MEDS ORDERED: Compazine 10 MG/2 ML IV ONE (18:32)
[2021-09-13] MEDS ORDERED: Compazine 10 MG/2 ML ONE (18:39)
[2021-09-13] MEDS ORDERED: TORAdol 30 mg Injection ONE (18:39)
[2021-09-13] MEDS ORDERED: Sodium Chloride 0.9% 1000 ML 1,000 ML ONE (18:39)
[2021-09-13 18:57] LABS: Absolute Neutrophil Ct (ANC) 4.36 (1.4-6.9); BASOPHIL % 0.4 % (0.0-0.4); Basophil (Absolute #) 0.02 (0-0.4); Eosinophil % 0.4 % (0.00-5.0); Eosinophil (Absolute #) 0.02 (0-0.5); Hematocrit 46.1 % (42-50); Hemoglobin 15.7 gm/dl (12.5-18.0); Lymphocyte (Absolute #) 0.46 (1.0-4.6); Mean Cell Volume 84.9 fl (78-100); Mean Corpuscular Hemoglobin 28.9 pg (26-32); Mean Corpuscular Hgb Concent. 34.1 g/dl (32-36); Mean Platelet Volume 11.5 fl (7.5-11.0); Monocyte (Absolute #) 0.24 (0.0-1.3); Monocytes % 4.7 % (0.0-12.0); Neutrophil % 85.5 % (36.0-66.0); Platelet Count 139 K/mm3 (150-450); Red Blood Count 5.43 M/mm3 (4.1-5.6); Red Cell Distribution Width 13.6 % (11.5-14.0); White Blood Count 5.1 K/mm3 (4.0-10.5)
[2021-09-13 19:09] LABS: ALBUMIN 4.5 g/dL (3.5-5.0); ALKALINE PHOSPHATASE 57 U/L (38-126); ANION GAP 13.7 MEQ/L (5-15); BLOOD UREA NITROGEN 14 mg/dL (9-20); CHLORIDE 102 mmol/L (98-107); Calcium 8.5 mg/dL (8.4-10.2); Carbon Dioxide 25 mmol/L (22-30); Creatinine 1 0.96 mg/dL (0.66-1.25); EST GLOMERULAR FILTRATION RATE > 60.0 ML/MIN; Glucose 113 mg/dL (74-106); Potassium 4.1 mmol/L (3.5-5.1); SGOT/AST 22 U/L (17-59); SGPT/ALT 30 U/L (0-50); SODIUM 137 mmol/L (137-145); Total Protein 7.7 g/dL (6.3-8.2)
[2021-09-13 19:19] VITALS: BP 109/61; PULSE 124
[2021-09-13 19:23] VITALS: O2SAT 96
--- NOTE | 2021-09-13 19:23 | ERPHSYRPT ---
- History of Present Illness Time Seen by Provider: 09/13/21 18:25 Source: patient Exam Limitations: no limitations Patient Subjective Stated Complaint: Pt states "I have had back pain all day and I am having dizzy spells. My back hurts up into my neck and down to my feet." Triage Nursing Assessment: Pt presented alert and oriented X 3, skin pwd Pt ambulates with a stiff hunched over gait. PT grunting when he moves. Pt squinting when he moves. No apparent respiratory distress. Physician History: Patient is a 30-year-old male presents to our ED with complaints of headache dizzy spells and pain radiating from his neck to his feet. Patient states he feels nauseous and his abdomen is hurting. Symptoms started today after work. No trauma. No fever. No nausea or vomiting. No diarrhea no rash. Symptoms are constant. Symptoms are moderate in intensity. No specific worsening or improving factors. Patient denies sick contacts. He is not vaccinated. Patient voices no other complaints or concerns at this time. Timing/Duration: today Severity: moderate Modifying Factors: Improves With: nothing Associated Symptoms: No shortness of breath, No cough, No chills, No chest pain, No fever, No syncope, No seizure, No weakness Allergies/Adverse Reactions: No Known Drug Allergies Allergy (Verified 04/12/20 01:18) Home Medications: Cetirizine HCl [Zyrtec] 10 mg PO DAILY 08/20/17 [History] Fluticasone Propionate [Flonase NASAL] 2 gm NS DAILY 04/12/20 [History] Olopatadine HCl Ophth [Patanol 1% OPHTHALMIC] 2 drops IO BID 04/12/20 [History] Omeprazole 20 mg PO HS 04/12/20 [History] Metoprolol Tartrate 25 mg [Lopressor 25MG Tab] 25 mg PO DAILY 09/13/21 [History] Metoprolol Tartrate 50 mg [Lopressor 50 MG] 50 mg PO DAILY 09/13/21 [History] Hx Tetanus, Diphtheria Vaccination/Date Given: Yes Hx Influenza Vaccination/Date Given: No Hx Pneumococcal Vaccination/Date Given: No Immunizations Up to Date: Yes Travel Risk - International Travel Have you traveled outside of the country in past 3 weeks: No - Coronavirus Screening Are you exhibiting any of the following symptoms?: No Close contact with a COVID-19 positive Pt in past 14-21 Days: No - Vaccine Status Have you recieved a Covid-19 vaccination: No - Review of Systems Constitutional: No Symptoms, No Fever, No Chills Eyes: No Symptoms Ears, Nose, & Throat: No Symptoms Respiratory: No Symptoms, No Cough, No Dyspnea Cardiac: No Symptoms, No Chest Pain, No Edema, No Syncope Abdominal/Gastrointestinal: No Symptoms, No Abdominal Pain, No Nausea, No Vomiting, No Diarrhea Genitourinary Symptoms: No Symptoms, No Dysuria Musculoskeletal: No Symptoms, No Back Pain, No Neck Pain Skin: No Symptoms, No Rash Neurological: No Symptoms, No Dizziness, No Focal Weakness, No Sensory Changes Psychological: No Symptoms Endocrine: No Symptoms Hematologic/Lymphatic: No Symptoms Immunological/Allergic: No Symptoms All Other Systems: Reviewed and Negative - Past Medical History Pertinent Past Medical History: Yes Neurological History: No Pertinent History ENT History: No Pertinent History Cardiac History: High Cholesterol, Hypertension Respiratory History: No Pertinent History Endocrine Medical History: Hypoglycemia Musculoskeletal History: No Pertinent History GI Medical History: GERD History: No Pertinent History Psycho-Social History: No Pertinent History Male Reproductive Disorders: No Pertinent History Other Medical History: chronic back pain, pt states he does not have high blood pressure all the time. - Past Surgical History Past Surgical History: Yes Neuro Surgical History: No Pertinent History Cardiac: No Pertinent History Respiratory: No Pertinent History Gastrointestinal: Other Genitourinary: No Pertinent History Musculoskeletal: No Pertinent History Male Surgical History: No Pertinent History Other Surgical History: pyloric stenosis - Social History Smoking Status: Current every day smoker How long have you smoked: 0.25 Exposure to second hand smoke: Yes Alcohol Use: Socially Drug Use: none Patient Lives Alone: No Significant Family History: no pertinent family hx - Nursing Vital Signs Nursing Vital Signs: Initial Vital Signs Temperature 98.4 F 09/13/21 18:19 Pulse Rate 98 H 09/13/21 18:19 Respiratory Rate 24 09/13/21 18:19 Blood Pressure 136/85 09/13/21 18:19 O2 Sat by Pulse Oximetry 98 09/13/21 18:19 Pain Scale Pain Intensity [Back] 8 Pain Intensity 8 - Physical Exam General Appearance: no apparent distress, alert Eye Exam: PERRL/EOMI, eyes nml inspection Ears, Nose, Throat Exam: normal ENT inspection, TMs normal, pharynx normal, moist mucous membranes Neck Exam: normal inspection, non-tender, supple, full range of motion Respiratory Exam: normal breath sounds, lungs clear, airway intact, No respiratory distress Cardiovascular Exam: regular rate/rhythm, normal heart sounds, normal peripheral pulses Gastrointestinal/Abdomen Exam: soft, normal bowel sounds, No tenderness, No mass Back Exam: normal inspection, normal range of motion, No CVA tenderness, No vertebral tenderness Extremity Exam: normal inspection, normal range of motion, pelvis stable Neurologic Exam: alert, oriented x 3, cooperative, normal mood/affect, sensation nml, No motor deficits Skin Exam: normal color, warm, dry, No rash Lymphatic Exam: No adenopathy SpO2 Interpretation: normal SpO2: 96 O2 Delivery: Room Air - Course Nursing assessment & vital signs reviewed: Yes Ordered Tests: Active Orders 24 hr Category Date Time Status AMA [Release AMA] OM.NOW Care 09/13/21 19:15 Ordered IV Insertion STAT Care 09/13/21 18:29 Active Pulse Oximetry (ED) STAT Care 09/13/21 18:29 Active CBC W DIFF Stat Lab 09/13/21 18:50 Completed CMP Stat Lab 09/13/21 18:29 Ordered Medication Summary Generic Name Dose Route Start Last Admin Trade Name Freq PRN Reason Stop Dose Admin Sodium Chloride 1,000 mls @ 999 mls/hr 09/13/21 18:29 09/13/21 18:41 Sodium Chloride 0.9% 1000 Ml IV 09/13/21 19:29 999 mls/hr .[id number] STA Administration Discontinued Medications Generic Name Dose Route Start Last Admin Trade Name Freq PRN Reason Stop Dose Admin Sodium Chloride Confirm 09/13/21 18:39 Sodium Chloride 0.9% 1000 Ml Administered 09/13/21 18:40 Dose 1,000 mls @ ud .ROUTE .STK-MED ONE Ketorolac Tromethamine 30 mg 09/13/21 18:31 09/13/21 18:42 Ketorolac Tromethamine 30 Mg/Ml Inj IV 09/13/21 18:32 30 mg STAT ONE Administration Ketorolac Tromethamine Confirm 09/13/21 18:39 Ketorolac Tromethamine 30 Mg/Ml Inj Administered 09/13/21 18:40 Dose 30 mg .ROUTE .STK-MED ONE Prochlorperazine Edisylate 10 mg 09/13/21 18:32 09/13/21 18:42 Prochlorperazine Edisylate 10 Mg/2 Ml Vial IV 09/13/21 18:33 10 mg STAT ONE Administration Prochlorperazine Edisylate Confirm 09/13/21 18:39 Prochlorperazine Edisylate 10 Mg/2 Ml Vial Administered 09/13/21 18:40 Dose 10 mg .ROUTE .[facility] ONE Lab/Rad Data: Laboratory Result Diagrams 09/13/21 18:50 09/13/21 18:29 Laboratory Results 09/13/21 09/13/21 Range/Units 18:50 18:29 WBC 5.1 (4.0-10.5) K/mm3 RBC 5.43 (4.1-5.6) M/mm3 Hgb 15.7 (12.5-18.0) gm/dl Hct 46.1 (42-50) % MCV 84.9 (78-100) fl MCH 28.9 (26-32) pg MCHC 34.1 (32-36) g/dl RDW 13.6 (11.5-14.0) % Plt Count 139 L (150-450) K/mm3 MPV 11.5 H (7.5-11.0) fl Gran % 85.5 H (36.0-66.0) % Eos # (Auto) 0.02 (0-0.5) Absolute Lymphs (auto) 0.46 L (1.0-4.6) Absolute Monos (auto) 0.24 (0.0-1.3) Lymphocytes % 9.0 L (24.0-44.0) % Monocytes % 4.7 (0.0-12.0) % Eosinophils % 0.4 (0.00-5.0) % Basophils % 0.4 (0.0-0.4) % Absolute Granulocytes 4.36 (1.4-6.9) Basophils # 0.02 (0-0.4) Sodium 137 (137-145) mmol/L Potassium 4.1 (3.5-5.1) mmol/L Chloride 102 (98-107) mmol/L Carbon Dioxide 25 (22-30) mmol/L Anion Gap 13.7 (5-15) MEQ/L BUN 14 (9-20) mg/dL Creatinine 0.96 (0.66-1.25) mg/dL Estimated GFR > 60.0 ML/MIN Glucose 113 H (74-106) mg/dL Calcium 8.5 (8.4-10.2) mg/dL Total Bilirubin 0.80 (0.2-1.3) mg/dL AST 22 (17-59) U/L ALT 30 (0-50) U/L Alkaline Phosphatase 57 (38-126) U/L Serum Total Protein 7.7 (6.3-8.2) g/dL Albumin 4.5 (3.5-5.0) g/dL - Progress Progress Note: Patient reported to nurse that he wanted to leave. Patient states that he does not like the monitors on him. Patient states the monitor is making feel anxious and he just wants to leave. I spoke to patient regarding his desire to leave and patient states that "I just want to leave". Patient is of sound mind. Patient is appropriate to make informed and i ndependent medical decisions. Patient understands that leaving AGAINST MEDICAL ADVICE can result in delayed diagnosis, increased risk of morbidity, mortality, short and long-term disability including . In spite of these risks, patient has decided to leave AGAINST MEDICAL ADVICE. Patient understands that he may return to our ED at any point if he reconsiders. Patient agrees to follow-up with his or her primary care doctor within 48 hours for reevaluation. Patient voices no other complaints or concerns at this time. We will release patient AGAINST MEDICAL ADVICE per their request. Portions of this note were created with voice recognition technology. There may be grammatical, spelling, punctuation or sound alike errors 09/13/21 19:21 Patient left the ED prior to completion of my note. 09/13/21 19:24 Counseled pt/family regarding: need for follow-up - Departure Departure Disposition: AMA Clinical Impression: Dizziness, Headache, Back pain Condition: Stable Critical Care Time: No Referrals: DALY NASH MD [Primary Care Provider] - Follow up/PCP as directed
[2021-09-13 20:27] LABS: Slide Review 1 YES
== END 2021-09-13 19:18 | disposition left against medical advice (07) ==
LOC: ED 18:14
DX: R51.9 Headache, unspecified (principal); R42 Dizziness and giddiness; M54.9 Dorsalgia, unspecified; R11.0 Nausea; E78.5 Hyperlipidemia, unspecified; I10 Essential (primary) hypertension; Z72.0 Tobacco use
CPT/HCPCS: 36000; 36415; 80053; 85025; 94760; 96374; 96375; 99284; J1885

== ENCOUNTER 2023-08-31 15:12 | Emergency (ER) | payer OTHER ==
[2023-08-31] MEDS ORDERED: Kenalog-40 IM ONE (15:52)
[2023-08-31 16:08] VITALS: BP 130/86; PULSE 73; RESP 19; TEMP 98.1; O2SAT 98
--- NOTE | 2023-08-31 16:11 | ERPHSYRPT ---
- History of Present Illness Time Seen by Provider: 08/31/23 15:38 Source: patient Exam Limitations: no limitations Patient Subjective Stated Complaint: Rash from some type of poison Triage Nursing Assessment: Patient reports to ER with c/o itching to his left elbow related to poison contact while cutting down some trees around 7 days ago. Patient states he received a steroid injection less than 24 hrs ago and the rash has decreased in size but the itching is uncontrollable. Patient has been using triamcinolone cream every 2 hours without relief. Patient does have red raised patchy rash noted to left elbow and left side of abdomen. Physician History: 32-year-old presented to the ER with chief complaint of rash on the left forearm/elbow/anterior lower chest wall/abdominal wall for almost 1 week. Patient reports [place] almost a week [place] when it started. Reports itching and burning sensation. No discharge. No fever chills or swelling reported. Patient has itch pereira/streaking with crusted vesicles on the left upper extremity and trunk. 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 I believe patient has contact dermatitis I would not give him another shot of steroid but will continue with topical steroid and Benadryl as needed. Discussed signs symptoms of worsening return to ER which he seems understanding. Allergies/Adverse Reactions: Hmblkrn-WNA-MtD Reductase Inhibitor Adverse Reaction (Verified 08/31/23 15:43) "all cholesterol medications" cause severe migraines Home Medications: Cetirizine HCl [Zyrtec] 10 mg PO DAILY 08/20/17 [History] Omeprazole 20 mg PO HS 04/12/20 [History] Metoprolol Succinate 25 mg Xl* [Toprol-Xl 25MG Tablets] 25 mg PO DAILY 08/31/23 [History] Metoprolol Succinate 50 mg [Toprol Xl 50 MG] 50 mg PO DAILY 08/31/23 [History] Semaglutide [Ozempic] 0.5 mg SQ WEEKLY 08/31/23 [History] Hx Tetanus, Diphtheria Vaccination/Date Given: Yes Hx Influenza Vaccination/Date Given: No Hx Pneumococcal Vaccination/Date Given: No Travel Risk - International Travel Have you traveled outside of the country in past 3 weeks: No - Coronavirus Screening Are you exhibiting any of the following symptoms?: No Close contact with a COVID-19 positive Pt in past 14-21 Days: No - Vaccine Status Have you recieved a Covid-19 vaccination: No - Review of Systems Constitutional: No Symptoms Eyes: No Symptoms Ears, Nose, & Throat: No Symptoms Respiratory: No Symptoms Cardiac: No Symptoms Abdominal/Gastrointestinal: No Symptoms Skin: Pruritis, Rash, Skin Lesions Neurological: No Symptoms Psychological: No Symptoms - Past Medical History Pertinent Past Medical History: Yes Neurological History: No Pertinent History ENT History: No Pertinent History Cardiac History: High Cholesterol, Hypertension Respiratory History: No Pertinent History Endocrine Medical History: Hypoglycemia Musculoskeletal History: No Pertinent History GI Medical History: GERD History: No Pertinent History Psycho-Social History: No Pertinent History Male Reproductive Disorders: No Pertinent History Other Medical History: chronic back pain, pt states he does not have high blood pressure all the time. - Past Surgical History Past Surgical History: Yes Neuro Surgical History: No Pertinent History Cardiac: No Pertinent History Respiratory: No Pertinent History Gastrointestinal: Other Genitourinary: No Pertinent History Musculoskeletal: No Pertinent History Male Surgical History: No Pertinent History Other Surgical History: pyloric stenosis - Social History Smoking Status: Former smoker How long have you smoked: 0.25 Exposure to second hand smoke: Yes Alcohol Use: Socially Drug Use: none Patient Lives Alone: No Significant Family History: no pertinent family hx - Nursing Vital Signs Nursing Vital Signs: Initial Vital Signs Temperature 98.1 F 08/31/23 15:48 Pulse Rate 73 08/31/23 15:48 Respiratory Rate 19 08/31/23 15:48 Blood Pressure 130/86 08/31/23 15:48 O2 Sat by Pulse Oximetry 98 08/31/23 15:48 Pain Scale Pain Intensity 0 - Physical Exam General Appearance: no apparent distress, alert Eye Exam: PERRL/EOMI Ears, Nose, Throat Exam: normal ENT inspection Neck Exam: normal inspection, non-tender, supple, full range of motion Respiratory Exam: normal breath sounds, lungs clear Cardiovascular Exam: regular rate/rhythm, normal heart sounds Extremity Exam: normal range of motion Neurologic Exam: alert, oriented x 3, 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 Patient reports [place] almost a week [place] when it started. Reports itching and burning sensation. No discharge. No fever chills or swelling reported. Patient has itch pereira/streaking with crusted vesicles on the left upper extremity and trunk. 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 I believe patient has contact dermatitis I would not give him another shot of steroid but will continue with topical steroid and Benadryl as needed. Discussed signs symptoms of worsening return to ER which he seems understanding. Counseled pt/family regarding: diagnosis, need for follow-up - Departure Departure Disposition: Home Clinical Impression: Contact dermatitis due to plant Condition: Stable Critical Care Time: No Referrals: DALY NASH MD [Primary Care Provider] - Follow up with PCP 1 day Instructions: Poison [place], Poison [place], Poison [place] ([place]) Additional Instructions: Take Benadryl as needed. Do not apply steroid cream on the face. Follow-up with primary care for reevaluation. Return to ER for worsening of her rash. Prescriptions: Betamethasone/Propylene Glyc [Betamethasone Dp Aug 0.05% Crm] 15 gm TP TID 7 Days #1 tu
== END 2023-08-31 17:03 | disposition home or self-care (01) ==
LOC: ED 15:12
DX: L23.7 Allergic contact dermatitis due to plants, except food (principal); E78.5 Hyperlipidemia, unspecified; I10 Essential (primary) hypertension; Z79.85 Long-term (current) use of injectable non-insulin antidiabetic drugs; Z79.899 Other long term (current) drug therapy; Z28.310 Unvaccinated for COVID-19
CPT/HCPCS: 99281